=== PATIENT | male | born 1990 | race Caucasian/White ===

== ENCOUNTER 2019-04-22 13:15 | Emergency (ER) | payer SELFPAY ==
[~2019-04-22] VITALS: Ht 180.3 cm; Wt 70.5 kg
[~2019-04-22 13:15] MED LIST: NO MEDS
[2019-04-22 13:17] VITALS: BP 172/65
[2019-04-22] MEDS ORDERED: MUPIROCIN CALCIUM 2% 15 GM CREAM TP ONE (14:45)
[2019-04-22] MEDS ORDERED: SULFAMETHOX/TRIMETH DS 800-160 MG/TABLET PO ONE (14:45)
[2019-04-22] MEDS ORDERED: IBUPROFEN 600 MG TABLET PO ONE (14:45)
== END 2019-04-22 15:44 | disposition home or self-care (01) ==
LOC: EMS 13:16
DX: L03.211 Cellulitis of face (principal); F17.210 Nicotine dependence, cigarettes, uncomplicated